=== PATIENT | female | born 2000 | race Caucasian/White ===

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

== ENCOUNTER 2021-07-11 10:33 | Emergency (ER) | payer OTHER, SELFPAY ==
[~2021-07-11] VITALS: Ht 167.6 cm; Wt 59.0 kg
[2021-07-11 10:38] VITALS: BP 122/75
--- NOTE | 2021-07-11 10:41 | NUR ---
PT TO WAIT IN TENT.
--- NOTE | 2021-07-11 10:42 | NUR ---
21 Y/O FEMALE C/O SORETHROAT AND BILATERAL EAR PAIN 8/ X4DAYS. DENIES FEVER/CHILLS. DENIES N/V. DENIES PMH NKA
--- NOTE | 2021-07-11 10:53 | NUR ---
SRIDEVI DE LA GARZA WITH PT FOR FURTHER EVALUATION.
[2021-07-11] MEDS ORDERED: PRED20TA5 PO (10:59)
[2021-07-11] MEDS ORDERED: PENICILLIN G BENZATHINE L-A 1.2 MU/2 ML SYR IM ONE (11:00)
[2021-07-11] MEDS ORDERED: KETOROLAC 30 MG/ML VIAL IM ONE (11:00)
--- NOTE | 2021-07-11 11:52 | NUR ---
Patient discharged with v/s stable. Written and verbal after care instructions ABOUT STREP THROAT AND SORE THROAT given and explained. Patient alert, oriented and verbalized understanding of instructions. Ambulatory with steady gait. All questions addressed prior to discharge. ID band removed. Patient advised to follow up with PMD. Rx of PREDNISONE given. Patient educated on indication of medication including possible reaction and side effects. Opportunity to ask questions provided and answered.
== END 2021-07-11 11:52 | disposition home or self-care (01) ==
LOC: MED 10:33
DX: J02.9 Acute pharyngitis, unspecified (principal); R50.9 Fever, unspecified; Z79.899 Other long term (current) drug therapy
CPT/HCPCS: 87081; 96372; 99284; J0561; J1885